=== PATIENT | female | born 1980 | race Two or more races ===

== ENCOUNTER 2024-03-31 07:41 | Day surgery (SDC) | payer BC ==
[~2024-03-31 07:41] MED LIST: Sodium Chloride 0.9% 10 ML Syringe FLUSH PRN; Sodium Chloride 0.9% 10 ML Syringe FLUSH SCH
[2024-03-31] MEDS ORDERED: Midazolam 1 MG/ML 2 ML SDV ONE (07:42)
[2024-03-31] MEDS ORDERED: Propofol 200 MG/20 ML SDV ONE ×2 (07:43)
[2024-03-31] MEDS ORDERED: ceFAZolin 2 GM Vial ONE (07:43)
[2024-03-31] MEDS ORDERED: Lidocaine 1% 2 ML ONE (07:43)
[2024-03-31] MEDS ORDERED: fentaNYL 100 MCG/2 ML SDV ONE (07:43)
[2024-03-31] MEDS ORDERED: Rocuronium 50 MG/5 ML Vial ONE (07:52)
[2024-03-31] MEDS: Lactated Ringers 1,000 ML IV SCH (08:00)
[2024-03-31 08:32] LABS: HEMATOCRIT 41.3 % (37.0-47.0); HEMOGLOBIN 14.6 gm/dl (12.0-16.0); MEAN CORPUSCULAR HEMOGLOBIN 31.9 pg (28.0-32.0); MEAN CORPUSCULAR HGB CONC 35.4 g/dl (32.0-36.0); MEAN CORPUSCULAR VOLUME 90.2 fl (83.0-99.0); MEAN PLATELET VOLUME 8.6 fl (9.4-12.3); PLATELET COUNT,PLT 303 K/mm3 (150-400); RED BLOOD CELL COUNT 4.58 M/mm3 (4.10-5.30); WHITE BLOOD CELL COUNT,WBC 8.89 K/mm3 (3.9-11.3)
[2024-03-31 08:49] LABS: ANION GAP 14.7 (5-15); BLOOD UREA NITROGEN,BUN 12 mg/dL (7-18); CALCIUM 8.9 mg/dL (8.5-10.1); CARBON DIOXIDE,CO2 25 mEq/L (21-32); CHLORIDE,CL 102 mEq/L (98-107); CREATININE 0.8 mg/dL (0.55-1.02); ESTIMATED GFR 94 mL/min (>60); GLUCOSE RANDOM 100 mg/dL (70-99); POTASSIUM,K 3.7 mEq/L (3.5-5.1); SODIUM,NA 138 mEq/L (136-145)
[2024-03-31] MEDS ORDERED: Bupivacaine 0.5% 30 ML SDV ONE (09:05)
[2024-03-31] MEDS ORDERED: Bupivacaine 0.25% 10 ML SDV ONE ×2 (09:05→09:12)
[2024-03-31] MEDS ORDERED: EPINEPHrine 1 MG/ML SDV ONE (09:05)
[2024-03-31] MEDS ORDERED: fentaNYL 100 MCG/2 ML SDV IVPUSH PRN ×2 (09:12→14:10)
[2024-03-31] MEDS ORDERED: HYDROmorphone 0.5 MG/0.5 ML Syringe IVPUSH PRN ×2 (09:12→14:10)
[2024-03-31] MEDS ORDERED: Ondansetron 4 MG/2 ML SDV IVPUSH PRN ×2 (09:12→14:10)
[2024-03-31] MEDS ORDERED: Labetalol 100 MG/20 ML MDV ONE (09:45)
[2024-03-31] MEDS ORDERED: Sugammadex Sodium 200 MG/2 ML VIAL IV ONE ×3 (09:51→19:51)
[2024-03-31 10:14] VITALS: BP 139/92; PULSE 87
== END 2024-03-31 11:05 ==
LOC: JD.SDS 07:41
PROVIDERS: ATTEND Obstetrics & Gynecology
DX: N93.9 Abnormal uterine and vaginal bleeding, unspecified (principal); N84.0 Polyp of corpus uteri; Z53.8 Procedure and treatment not carried out for other reasons; J35.2 Hypertrophy of adenoids; I10 Essential (primary) hypertension; R51.9 Headache, unspecified; Z90.710 Acquired absence of both cervix and uterus; Z98.890 Other specified postprocedural states; Z88.1 Allergy status to other antibiotic agents; Z91.018 Allergy to other foods; Z91.012 Allergy to eggs; Z88.8 Allergy status to other drugs, medicaments and biological substances; Z91.048 Other nonmedicinal substance allergy status; Z79.899 Other long term (current) drug therapy; Z88.5 Allergy status to narcotic agent
CPT/HCPCS: 36415; 58550; 80048; 81025; 85027; 86850; 86900; 86901; J0171; J0665; J0690; J1921; J2250; J2704; J3010; J3490; J7120; 00944

== ENCOUNTER 2025-03-23 06:27 | Day surgery (SDC) | payer BC ==
[~2025-03-23 06:27] MED LIST changes: +Dexamethasone 4 MG/ML 5 ML MDV ONE; +EPINEPHrine 1 MG/ML SDV ONE; +Ketorolac 30 MG/ML SDV ONE; +Lactated Ringers 1,000 ML IV SCH; +Lidocaine 2% 5 ML SDV ONE; +Ondansetron 4 MG/2 ML SDV ONE; +Propofol 200 MG/20 ML SDV ONE; +Rocuronium 50 MG/5 ML Vial ONE; +Sugammadex Sodium 200 MG/2 ML VIAL IV ONE; +dexmedeTOMIDine HCl 200 MCG/2 ML SDV ONE; +fentaNYL 100 MCG/2 ML SDV ONE
[2025-03-23] MEDS ORDERED: Lactated Ringers 1,000 ML IV ONE (06:28)
[2025-03-23] MEDS ORDERED: ceFAZolin 2 GM Vial ONE (06:35)
[2025-03-23] MEDS ORDERED: Bupivacaine 0.25% 10 ML SDV ONE (06:40)
[2025-03-23] MEDS ORDERED: Ropivacaine 0.5% 5 MG/ML 30 ML SDV ONE (06:40)
[2025-03-23] MEDS ORDERED: Ketamine 200 MG/20 ML MDV ONE (06:48)
[2025-03-23] MEDS ORDERED: Lactated Ringers 1,000 ML ONE (07:02)
[2025-03-23] MEDS ORDERED: Rocuronium 50 MG/5 ML Vial ONE (07:15)
[2025-03-23] MEDS: Bupivacaine 0.5% 30 ML SDV ONE (07:50)
[2025-03-23] MEDS ORDERED: fentaNYL 100 MCG/2 ML SDV ONE (08:03)
[2025-03-23] MEDS: EPINEPHrine 1 MG/ML SDV ONE (08:20)
[2025-03-23] MEDS: Lidocaine 1% 30 ML SDV ONE (08:20)
[2025-03-23] MEDS ORDERED: HYDROmorphone 0.5 MG/0.5 ML Syringe IVPUSH PRN (08:25)
[2025-03-23] MEDS ORDERED: fentaNYL 100 MCG/2 ML SDV IVPUSH PRN (08:25)
[2025-03-23] MEDS: Acetaminophen/oxyCODONE 325-5 MG Tab PO PRN (11:15)
[2025-03-23] MEDS: Ondansetron 4 MG/2 ML SDV IVPUSH PRN (11:15)
[2025-03-23 14:58] VITALS: BP 117/80; PULSE 66
== END 2025-03-23 12:33 | disposition home or self-care (01) ==
LOC: JD.SDS 06:27
PROVIDERS: ATTEND Obstetrics & Gynecology
DX: D25.0 Submucous leiomyoma of uterus (principal); D25.1 Intramural leiomyoma of uterus; D25.2 Subserosal leiomyoma of uterus; N80.03 Adenomyosis of the uterus; N83.8 Other noninflammatory disorders of ovary, fallopian tube and broad ligament; I10 Essential (primary) hypertension; K21.9 Gastro-esophageal reflux disease without esophagitis; E66.9 Obesity, unspecified; Z68.39 Body mass index [BMI] 39.0-39.9, adult; Z79.899 Other long term (current) drug therapy; Z91.012 Allergy to eggs; Z91.018 Allergy to other foods; Z91.011 Allergy to milk products
CPT/HCPCS: 36415; 58552; 86850; 86900; 86901; A9270; J0171; J0665; J0690; J1100; J1885; J2003; J2405; J2704; J2795; J3010; J3490; J7120; 00944; 64488